=== PATIENT | male | born 1975 | race Caucasian/White ===

== ENCOUNTER 2024-08-19 19:17 | Emergency (ER) | payer MEDICAID ==
[~2024-08-19] VITALS: Ht 165.1 cm; Wt 95.1 kg
[~2024-08-19 19:17] MED LIST: ASPI-1497 PO; LOSA100T33 MT
[2024-08-19 19:28] VITALS: O2SAT 99
[2024-08-19] MEDS ORDERED: CHLO473M13 MT (20:43)
[2024-08-19 21:02] VITALS: BP 128/84; PULSE 81; RESP 16; TEMP 36.9; O2SAT 98
== END 2024-08-19 21:06 | disposition home or self-care (01) ==
LOC: ER 19:17
DX: S01.512A Laceration without foreign body of oral cavity, initial encounter (principal); I10 Essential (primary) hypertension; Z79.899 Other long term (current) drug therapy; X58.XXXA Exposure to other specified factors, initial encounter; Y93.89 Activity, other specified; Y92.89 Other specified places as the place of occurrence of the external cause; Y99.8 Other external cause status
CPT/HCPCS: 99282